=== PATIENT | female | born 1955 | race Caucasian/White ===

== ENCOUNTER 2019-06-01 23:34 | Inpatient (IN) | payer MEDICARE, BC ==
--- NOTE | 2019-06-01 23:44 | ED ---
Palpitations / Dysrhythmia - Allergy/Home Medications Allergies/Adverse Reactions: Allergies Allergy/AdvReac Type Severity Reaction Status Date / Time erythromycin base Allergy SEVERE Verified 04/10/19 11:26 DIZZINESS shellfish derived Allergy Anaphylatic Verified 04/10/19 11:26 Shock PMH/Surg Hx/FS Hx/Imm Hx Endocrine/Hematology History: Reports: Hx Anemia - SLIGHT Denies: Hx Diabetes, Hx Thyroid Disease Cardiovascular History: Denies: Hx Hypertension, Hx Pacemaker/ICD Respiratory History: Reports: Hx Sleep Apnea, Other Respiratory Problems/ Disorders - Bronchiectasis, MAC Denies: Hx Asthma, Hx Chronic Obstructive Pulmonary Disease (COPD) GI History: Reports: Hx Gastroesophageal Reflux Disease - PREVACID, Hx Irritable Bowel Denies: Hx Ulcer History: Reports: Hx Renal Disease - Microhematuria, Other Problems/ Disorders - MICROHEMATURIA Sensory History: Reports: Hx Contacts or Glasses - READING Denies: Hx Hearing Aid Opthamlomology History: Reports: Hx Contacts or Glasses - READING Neurological History: Reports: Hx Migraine - HISTORY OF- NONE RECENTLY, Other Neuro Impairments/Disorders - PAIN CLINIC PT Psychiatric History: Denies: Hx Panic Disorder - Cancer History Cancer Type, Location and Year: HX CHORIOCARCINOMA (1988) - TREATED WITH CHEMO Hx Chemotherapy: Yes - MOLAR Hx Radiation Therapy: No - Surgical History Surgery Procedure, Year, and Place: TONSILLECTOMY AND ADENOIDS. 4 D&C'S. OPEN CHOLESCYSTECTOMY. OVARIAN CYSTECTOMY WITH APPENDECTOMY. TVH- LAPAROSCOPIC- BILAT. S&O. LEFT MINI THORACOTOMY WITH EXICSION OF APICAL BLEBS AND PLEURODESIS. CLOSED REDUCTION OF NASAL FRACTURE. BILATERAL PLEPHAROPLASTY. CYSTO'S X 3 Hx Anesthesia Reactions: No Infectious Disease History: Denies: Hx Clostridium Difficile, Hx Hepatitis, Hx Human Immunodeficiency Virus (HIV), Hx of Known/Suspected MRSA, Hx Shingles, Hx Tuberculosis, Hx Known/ Suspected VRE, Hx Known/Suspected VRSA, History Other Infectious Disease - Family History Known Family History: Positive: Respiratory Disease Family History: No FHx of breast CA - Social History Alcohol Use: Occasionally Alcohol Amount: <1 Substance Use Type: Reports: None Hx Tobacco Use: No Smoking Status (MU): Former Smoker Type: Cigarettes Procedures - Sedation Patient Received Moderate/Deep Sedation with Procedure: No Diagnostics - Laboratory Lab Statement: Any lab studies that have been ordered have been reviewed, and results considered in the medical decision making process. - EKG 2338 Cardiac Rate: Tachycardia - 156 BPM EKG Rhythm: Atrial Fibrillation ST Segment: Other Summary of EKG Findings: A-FIB with rapid V-Rate at 156 BPM, ST depressions that are probably rate related, Nml P waves. No STEMI. Interpreted by Dr. Victor at 06/01/19, 2342. Course/Dx - Course Course Of Treatment: EKG at 2338 shows A-FIB with rapid V-Rate at 156 BPM, ST depressions that are probably rate related, Nml P waves. No STEMI Discharge ED - Discharge Plan Referrals: Franca Nix NP [Primary Care Provider] - - Attestation Statements Document Initiated by Scribe: Yes Documenting Scribe: Fabio Dewitt Provider For Whom Scribe is Documenting (Include Credential): Nikunj Victor MD Scribe Attestation: Fabio Corea, scribed for Nikunj Victor MD on 06/01/19 at 2344.
[2019-06-01] MEDS ORDERED: Diltiazem IV BAG* D5W Premix 125 MG/125 ML BAG IV SCH (23:45)
[2019-06-01] MEDS ORDERED: Diltiazem IV push/loading dose 5 MG/ML 5 ML vial (25 mg) IV SLOW PU ONE (23:52)
--- NOTE | 2019-06-01 23:57 | ED ---
Complex/Multi-Sys Presentation - HPI Summary HPI Summary: This pt is a 64 Y/O F presenting to [facility] with a CC of palpitations that are described as irregularly irregular and tachycardia. She states that her symptoms started on 05/30/19 with generalized illness including a fever, chills , malaise, arthralgia, and a headache. She states that on 05/31/19 she became nauseas and had episodes of vomiting along with the previous symptoms. She states that she only had one episode of emesis that alleviated her symptoms for the day. She states that tonight she began having pleuritic CP and AFIB with tachycardia. She states that the pain is rated an 8/10 in severity. She has no pertinent respiratory PMHx. - History Of Current Complaint Chief Complaint: EDChestPainROMI Time Seen by Provider: 06/01/19 23:41 Hx Obtained From: Patient Onset/Duration: Sudden Onset, Lasting Days - 2, Still Present, Worse Since - tonight, 2199 Timing: Constant Severity Currently: Severe - 8/10 Severity Initially: Mild Location: Pain At: - CP described as pleuritic Aggravating Factor(s): deep breaths Alleviating Factor(s): emesis Associated Signs And Symptoms: Positive: Headache, SOB, Chest Pain - pleuritic, Palpitations - irregullarly irregular, Nausea, Vomiting, Other - chills, myalgia , arthralgia - Allergies/Home Medications Allergies/Adverse Reactions: Allergies Allergy/AdvReac Type Severity Reaction Status Date / Time erythromycin base Allergy SEVERE Verified 06/01/19 23:44 DIZZINESS shellfish derived Allergy Anaphylatic Verified 06/01/19 23:44 Shock PMH/Surg Hx/FS Hx/Imm Hx Previously Healthy: Yes Endocrine/Hematology History: Reports: Hx Anemia - SLIGHT Denies: Hx Diabetes, Hx Thyroid Disease Cardiovascular History: Denies: Hx Hypertension, Hx Pacemaker/ICD Respiratory History: Reports: Hx Sleep Apnea, Other Respiratory Problems/ Disorders - Bronchiectasis, MAC Denies: Hx Asthma, Hx Chronic Obstructive Pulmonary Disease (COPD) GI History: Reports: Hx Gastroesophageal Reflux Disease - PREVACID, Hx Irritable Bowel Denies: Hx Ulcer History: Reports: Hx Renal Disease - Microhematuria, Other Problems/ Disorders - MICROHEMATURIA Sensory History: Reports: Hx Contacts or Glasses - READING Denies: Hx Hearing Aid Opthamlomology History: Reports: Hx Contacts or Glasses - READING Neurological History: Reports: Hx Migraine - HISTORY OF- NONE RECENTLY, Other Neuro Impairments/Disorders - PAIN CLINIC PT Psychiatric History: Denies: Hx Panic Disorder - Cancer History Cancer Type, Location and Year: HX CHORIOCARCINOMA (1988) - TREATED WITH CHEMO Hx Chemotherapy: Yes - MOLAR Hx Radiation Therapy: No - Surgical History Surgery Procedure, Year, and Place: TONSILLECTOMY AND ADENOIDS. 4 D&C'S. OPEN CHOLESCYSTECTOMY. OVARIAN CYSTECTOMY WITH APPENDECTOMY. TVH- LAPAROSCOPIC- BILAT. S&O. LEFT MINI THORACOTOMY WITH EXICSION OF APICAL BLEBS AND PLEURODESIS. CLOSED REDUCTION OF NASAL FRACTURE. BILATERAL PLEPHAROPLASTY. CYSTO'S X 3 Hx Anesthesia Reactions: No - Immunization History Immunizations Up to Date: Yes Infectious Disease History: No Infectious Disease History: Denies: Hx Clostridium Difficile, Hx Hepatitis, Hx Human Immunodeficiency Virus (HIV), Hx of Known/Suspected MRSA, Hx Shingles, Hx Tuberculosis, Hx Known/ Suspected VRE, Hx Known/Suspected VRSA, History Other Infectious Disease, Traveled Outside the [place] in Last 30 Days - Family History Known Family History: Positive: Respiratory Disease Family History: No FHx of breast CA - Social History Occupation: Employed Full-time Lives: With Family Alcohol Use: Occasionally Alcohol Amount: <1 Hx Substance Use: No Substance Use Type: Reports: None Hx Tobacco Use: Yes Smoking Status (MU): Former Smoker Type: Cigarettes Review of Systems Positive: Other - malaise . Negative: Chills Positive: Palpitations - fast and irregular , Chest Pain - pleuritic Positive: Vomiting, Nausea Positive: Arthralgia Positive: Headache All Other Systems Reviewed And Are Negative: Yes Physical Exam - Summary Physical Exam Summary: Appearance: Well-appearing, Well-nourished, lying in bed comfortably Skin: Warm, dry, no obvious rash Eyes: sclera anicteric, no conjunctival pallor ENT: mucous membranes moist, pharynx appears normal Neck: Supple, nontender Respiratory: Clear to auscultation, no signs of respiratory distress Cardiovascular: Very rapid and irregularly irregular pulse No murmurs. Normal distal pulses in tibial and radial bilaterally. Abdomen: Soft, nontender, normal active bowel sounds present Musculoskeletal: Normal, Strength/ROM Intact Neurological: A&Ox3, awake and alert, mentation is normal, speech is fluent and appropriate Psychiatric: affect is normal, does not appear anxious or depressed Triage Information Reviewed: Yes Vital Signs On Initial Exam: Initial Vitals Temp Pulse Resp BP Pulse Ox 97.5 F 134 20 102/50 97 06/01/19 23:35 06/01/19 23:35 06/01/19 23:35 06/01/19 23:35 06/01/19 23:35 Vital Signs Reviewed: Yes Procedures - Sedation Patient Received Moderate/Deep Sedation with Procedure: No Diagnostics - Vital Signs Vital Signs Temp Pulse Resp BP Pulse Ox 06/01/19 23:35 97.5 F 134 20 102/50 97 - Laboratory Result Diagrams: 06/02/19 00:04 06/02/19 00:04 Lab Statement: Any lab studies that have been ordered have been reviewed, and results considered in the medical decision making process. - Radiology CXR Radiology Interpretation Completed By: ED Physician Summary of Radiographic Findings: Infiltrate in the R lower lung hicks. Cone Shaped. Pending offical review. - CT Chest CT CT Interpretation Completed By: Radiologist Summary of CT Findings: 1. Right middle lobe consolidation which is increased since 04/12/2016 and october. reflect interval lobar pneumonia. 2. Interstitial prominence with minimal fibro-atelectatic change and. bronchiectasis which is similar. There are mild patchy bilateral pulmonary. infiltrates which are similar to slightly increased overall. ED physician has reviewed this result. - EKG 2338 Cardiac Rate: Tachycardia - 156 BPM EKG Rhythm: Atrial Fibrillation ST Segment: Other Summary of EKG Findings: A-FIB with rapid V-Rate at 156 BPM, ST depressions that are probably rate related, Nml P waves. No STEMI. Interpreted by Dr. Victor at 06/01/19, 2342. 0303 Cardiac Rate: NL - 97 BPM EKG Rhythm: Sinus Rhythm ST Segment: Normal Ectopy: None Summary of EKG Findings: NSR at 97 BPM, P waves, QRS complex, and T waves are within normal limits, T waves and intervals are normal, no ischemic changes. This is a normal EKG. Interpreted by Dr. Victor at 06/02/19 0306. Re-Evaluation - Re-Evaluation First Eval Re-Evaluation Time: 00:36 Change: Unchanged Comment: Pt's heart rate is still elevated after course of Cardizem, will be given a higher dose and a Chest CT will be ordered. Complex Multi-Symp Course/Dx Course Of Treatment: This pt is a 64 Y/O F [facility] [place] a CC of palpitations that are described as irregularly irregular and tachycardia. She states that her symptoms started on 05/30/19 with generalized illness including a fever, chills, malaise, arthralgia, and a headache. She states that on she became nauseas and had episodes of vomiting along with the previous symptoms. Tonight at 2300 she states that she had an onset of pleuritic chest pain and palpitations described as fast and irregular. Her PE found that she has a Very rapid and irregularly irregular pulse. Her EKG found A-FIB with rapid V-Rate at 156 BPM, ST depressions that are probably rate related, Nml P waves. No STEMI. She has abnormal lab values in WBC 16.9, INR 1.35, Troponin I .03. Re-eval at 0036 found that the pt's heart rate is still elevated after course of Cardizem, will be given a higher dose and a Chest CT will be ordered. She was given cardizem and diltiazem during her ED course. Her CXR shows Infiltrate in the R lower lung hicks. Cone shaped. Dr. Boyer, Hospitalist, was consulted at 0045 and agreed with the decision to order a Chest CT without contrast. He also stated that he wanted ABG values. Her ABG labratory results found abnormalities in O2 saturation of 100 and base excess of -2.5. Her chest CT shows the followin. Right middle lobe consolidation which is increased since 04/12/2016 and october. reflect interval lobar pneumonia. 2. Interstitial prominence with minimal fibro-atelectatic change and. bronchiectasis which is similar. There are mild patchy bilateral pulmonary. infiltrates which are similar to slightly increased overall. Her Dx is PNA. She will be admitted to [facility] for further care. EKG at 0303 shows NSR at 97 BPM, P waves, QRS complex, and T waves are within normal limits, T waves and intervals are normal, no ischemic changes. This is a normal EKG. - Diagnoses Differential Diagnoses/HQI/PQRI: Metabolic Abnormality, Sepsis, Other - pulmonary embolus, pulmonary infarct Provider Diagnoses: PNA (pneumonia) - Physician Notifications Discussed Care Of Patient With: Dante Boyer Time Discussed With Above Provider: 02:35 Instructed by Provider To: Admit As Inpatient - Critical Care Time Critical Care Time: 30-74 min - 35 minutes Discharge ED - Sign-Out/Discharge Documenting (check all that apply): Patient Departure - admitted - Discharge Plan Condition: Stable Disposition: ADMITTED TO [facility] - Billing Disposition and Condition Condition: STABLE Disposition: Admitted to [facility] - Attestation Statements Document Initiated by Gerardoe: Yes Documenting Scribe: Fabio Goldamn Provider For Whom Jesus is Documenting (Include Credential): Nikunj Victor MD Scribe Attestation: IFabio, scribed for Nikunj Victor MD on 06/02/19 at 0553. Scribe Documentation Reviewed: Yes Provider Attestation: The documentation as recorded by the Fabio collazo accurately reflects the service I personally performed and the decisions made by me, Nikunj Victor MD Status of Scribe Document: Viewed Consult Consult: Dr. Boyer, Hospitalist, was consulted at 0045 and agreed with the decision to order a Chest CT without contrast. He also stated that he wanted ABG values. Dr. Boyer, Hospitalist, was consulted for potential admission at 0235.
[2019-06-02 00:11] LABS: Hematocrit 37 % (35-47); Mean Corpuscular HGB Conc 35 g/dL (31-36); Mean Corpuscular Hemoglobin 35 pg (27-31); Mean Corpuscular Volume 98 fL (80-97); Mean Platelet Volume 7.2 fL (7.4-10.4); Platelet Count 280 10^3/uL (150-450); Red Blood Count 3.76 10^6 /uL (3.70-4.87); Red Cell Distribution Width 13 % (10-15); White Blood Count 16.9 10^3/uL (3.5-10.8)
[2019-06-02 00:17] LABS: INR 1.35 (0.82-1.09)
[2019-06-02 00:28] LABS: ALT 31 U/L (7-52); AST 19 U/L (13-39); Albumin 3.7 g/dL (3.2-5.2); Alkaline Phosphatase 148 U/L (34-104); Anion Gap 11 mmol/L (2-11); BUN/Creatinine Ratio 16.4 (8-20); Blood Urea Nitrogen 37 mg/dL (6-24); CO2 Carbon Dioxide 26 mmol/L (22-32); Calcium 10.3 mg/dL (8.6-10.3); Chloride 99 mmol/L (101-111); EGFR African American 26.3 (>60); EGFR Non-African American 21.7 (>60); Globulin 3.8 g/dL (2-4); Glucose 111 mg/dL (70-100); Magnesium 1.9 mg/dL (1.9-2.7); Potassium 3.3 mmol/L (3.5-5.0); Sodium 136 mmol/L (135-145); Total Protein 7.5 g/dL (6.4-8.9)
[2019-06-02 00:34] LABS: Troponin I 0.03 ng/mL (<0.03)
[2019-06-02] MEDS ORDERED: cefTRIAXone(*) 1 GM in NS 0.9% 50 ML* 50 ML IVPB ONE ×2 (00:36→01:24)
[2019-06-02] MEDS ORDERED: NS 0.9% 1000 ML** 1,000 ML IV ONE ×2 (00:40)
[2019-06-02 00:57] LABS: ABS Lymphocytes 1.3 10^3/ul (1.0-4.8); ABS Monocytes 0.4 10^3/ul (0-0.8); ABS Neutrophils 15.2 10^3/ul (1.5-7.7); Eosinophil % 0.2 %; Lymphocyte % 7.9 %
[2019-06-02 01:06] LABS: TSH (Thyroid Stimulating Horm) 3.77 mcIU/mL (0.34-5.60)
[2019-06-02] MEDS ORDERED: Diltiazem IV push/loading dose 5 MG/ML 5 ML vial (25 mg) IV SLOW PU ONE (01:11)
[2019-06-02 03:31] LABS: Troponin I 0.07 ng/mL (<0.03)
[2019-06-02] MEDS ORDERED: Levofloxacin 750 MG IVPREMIX(* 750 MG/150 ML BAG IVPB SCH (06:00)
[2019-06-02 06:51] LABS: ABS Lymphocytes 1.5 10^3/ul (1.0-4.8); ABS Monocytes 0.4 10^3/ul (0-0.8); ABS Neutrophils 14.2 10^3/ul (1.5-7.7); Eosinophil % 0.1 %; Hematocrit 33 % (35-47); Hemoglobin 11.4 g/dL (12.0-16.0); Lymphocyte % 9.1 %; Mean Corpuscular HGB Conc 35 g/dL (31-36); Mean Corpuscular Hemoglobin 34 pg (27-31); Mean Corpuscular Volume 97 fL (80-97); Mean Platelet Volume 7.5 fL (7.4-10.4); Platelet Count 275 10^3/uL (150-450); Red Blood Count 3.38 10^6 /uL (3.70-4.87); Red Cell Distribution Width 13 % (10-15); White Blood Count 16.1 10^3/uL (3.5-10.8)
[2019-06-02 06:55] LABS: Influenza A Molecular NEGATIVE (Negative); Influenza B Molecular NEGATIVE (Negative)
[2019-06-02 06:58] LABS: BUN/Creatinine Ratio 16.6 (8-20); Calcium 9.3 mg/dL (8.6-10.3); EGFR African American 36.7 (>60); EGFR Non-African American 30.4 (>60); Potassium 3.6 mmol/L (3.5-5.0)
[2019-06-02] MEDS: NS 0.9% 1000 ML** 1,000 ML IV SCH ×2 (07:18→19:00)
[2019-06-02 07:20] LABS: Troponin I 0.07 ng/mL (<0.03)
[2019-06-02] MEDS ORDERED: Acetaminophen TAB* 325 MG PO PRN (07:22)
--- NOTE | 2019-06-02 08:35 | HP ---
CC: Franca Nix NP* ADMISSION HISTORY AND PHYSICAL: DATE OF ADMISSION: 06/02/19 CHIEF COMPLAINT: Right-sided chest pain and palpitation. HISTORY OF PRESENT ILLNESS: This is a 64-year-old female with past medical history of bronchiectasis, sleep apnea, on BiPAP nightly, came into the ER complaining of palpitations. The patient stated that she was in her usual state of health up until when she started developing right-sided chest pain, she does have a history of pleuritic chest pain and she did not think much of it and her pleuritic chest pain has gotten worse and she was having some accompanying chills and generalized malaise, arthralgia, and headache and some cough. Since , her pain has gotten worse and last night she had very severe chest pain accompanied by dizziness and palpitations. 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 She did have an episode of nausea and vomited 1 time, but denies any other urinary problems or any neurological problems other than the dizziness, which she previously mentioned. She does state that she has periodic constipation. PAST MEDICAL HISTORY: As mentioned bronchiectasis, sleep apnea. She also has chronic kidney disease, stage 3, and lumbar radiculopathy for which she gets intermittent steroid injections in the epidural space, last one was 04/24/19. The patient does follow up with veterinary poultry inspector, who is a bronchiectasis specialist at [facility]. PAST SURGICAL HISTORY: She has had total vagina hysterectomy and bilateral salpingo-oophorectomy, bilateral blepharoplasties, left thoracotomy due to multiple pneumothoraces, cholecystectomy, ovarian cystectomy, D and C x3, tonsil and adenoidectomy, irritable bowel syndrome, left index finger mass removal, broken nose, status post surgical repair, pleurodesis on the left side for multiple pneumothoraces. HOME MEDICATIONS: The patient is currently on: 1. Tramadol 50 mg p.o. b.i.d. 2. Radha's wort 300 mg p.o. b.i.d. 3. Sodium chloride 3% by inhalation b.i.d. 4. Simethicone 80 mg p.o. q.4 hours p.r.n. 5. Probiotic 1 tablet oral daily. 6. Multivitamin 1 tablet every morning. 7. Skelaxin 800 mg p.o. at bedtime. 8. Fiber Select Gummies 2 tablets chewable daily. 9. Barbara 150 mg oral daily. 10. Pepcid 20 mg p.o. b.i.d. 11. Estradiol 0.5 mg oral daily. 12. Echinacea 350 mg oral daily. 13. ProAir HFA 2 puffs by inhalation q.6 hours p.r.n. 14. Ventolin 2.5 mg by inhalation b.i.d. 15. Acetaminophen for pain 2 tablets q.6 hours p.r.n. ALLERGIES: The patient is allergic to ERYTHROMYCIN BASE and shellfish. FAMILY HISTORY: Father in his 80s, but was diagnosed with an IA at age 71 , also had a history of AFib. Grandmother had stroke. Two sisters had thyroid cancer. Mother at age 85 with AFib, pacemaker, and liver failure given she was an alcoholic. SOCIAL HISTORY: She used to work as a nurse, currently retired. Quit smoking in 1979, prior to that only had a few years of smoking, intermittently occasional alcohol use, no drugs. Lives with her and son and she is otherwise full code. REVIEW OF SYSTEMS: A 14-point review of systems did not reveal any new information other than what is mentioned in the HPI. PHYSICAL EXAMINATION GENERAL: The patient is awake, alert, and oriented x3, did not appear to be in any acute respiratory distress. VITAL SIGNS: In the ER, temperature was recorded at 97.5, BP was noted to be 102/50, heart rate was noted to be 197 to 150 initially, but post Cardizem drip it improved to 93, respiration rate 25, saturating 96% on 2 L nasal cannula. HEAD AND NECK: Atraumatic, normocephalic. Bilateral pupils were reactive. Oral mucosa was moist. Neck supple. No jugular venous distention. LUNGS: The patient's posterior aspect of the lungs were completely clear to auscultation, but on the right anterior aspect there were some rhonchi appreciated. HEART: S1, S2. Regular rate and rhythm. ABDOMEN: Soft, nontender, nondistended. EXTREMITIES: No cyanosis, clubbing, or edema. DIAGNOSTIC STUDIES/LAB DATA: CBC shows elevated white count of 16.9, hemoglobin, hematocrit stable, platelet count is stable. Coagulation profile shows INR of 1.35. ABG was unremarkable. Comprehensive metabolic panel shows potassium of 3.3, magnesium 1.9, a set of troponin 0.03, and later was 0.07, LFTs within normal limits. BUN elevated at 37, creatinine 2.26 compared to her baseline, there is a significant elevation in creatinine. EKG: Initial EKG was showing AFib with rapid ventricular rate of [address] segment depression in the inferolateral leads likely demand ischemia from her rate, these had resolved by the second EKG, which showed sinus rhythm at [address] scan of the chest was read as right middle lobe consolidation, which is increased since 04/24/16 may reflect interval lobar pneumonia, interstitial prominence with minimal fibroatelectatic changes and bronchiectasis, which is similar. There is a mild patchy bilateral pulmonary infiltrates, which are similar to slightly increased overall. IMPRESSION: This is a 64-year-old female with history of bronchiectasis, sleep apnea, chronic kidney disease, stage 3, here due to worsening renal failure, new - onset atrial fibrillation, and right middle lobe pneumonia. ASSESSMENT: 1. Sepsis secondary to right middle lobe pneumonia. We will follow up sputum cultures and we will start the patient on Levaquin. 2. New-onset atrial fibrillation likely secondary to pneumonia. Her heart rate is back to sinus rhythm. We will monitor the patient on telemetry, get an echocardiogram. The patient otherwise does not have any cardiac risk factors, CHADS score so far has been 0, but we will follow up echocardiogram to rule out any congestive changes and in the meantime, we will start the patient on daily aspirin for stroke prevention. 3. History of bronchiectasis, follows with [facility]. 4. History of obstructive sleep apnea, on BiPAP at home, we will restart the home BiPAP. 5. Acute on chronic kidney disease likely secondary to sepsis. We will start the patient on gentle hydration. 6. DVT prophylaxis with sequential compression device. [id number]/[facility] #: [id number] [facility]
[2019-06-02] MEDS ORDERED: Pneumococcal *Vac Polyvalent 0.5 ML VIAL IM ONE (09:00)
[2019-06-02] MEDS ORDERED: Famotidine TAB* 20 MG PO SCH (09:00)
[2019-06-02 09:37] LABS: Troponin I 0.07 ng/mL (<0.03)
[2019-06-02] MEDS: Famotidine TAB* 20 MG PO SCH (09:46)
[2019-06-02] MEDS: Aspirin 81 mg CHEW TAB* 81 MG TAB.CHEW PO SCH (09:47)
[2019-06-02] MEDS: Diltiazem TAB* 30 MG PO SCH ×3 (12:37→22:01)
[2019-06-02 13:28] LABS: Troponin I 0.06 ng/mL (<0.03)
[2019-06-02 15:53] LABS: Troponin I 0.05 ng/mL (<0.03)
[2019-06-02] MEDS: traMADol TAB* 50 MG PO PRN (18:09)
--- NOTE | 2019-06-02 19:23 | PN ---
Subjective Date of Service: 06/02/19 Interval History: Seen sitting up at the side of the bed, visiting with her family. Reporting sharp right mid-upper back pain and right anterior chest wall pain that is worse with inspiration. Denies shortness of breath, palpitations, abdominal pain , nausea, vomiting, issues moving her bowels of bladder. Is in sinus rhythm, according to telemetry. Family History: Unchanged from Admission Social History: Unchanged from Admission Past Medical History: Unchanged from Admission Objective Active Medications: Acetaminophen (Tylenol Tab*) 650 mg PO Q6H PRN PRN Reason: PAIN OR FEVER > 100.4F Last Admin: 06/02/19 07:33 Dose: 650 mg Aspirin (Aspirin 81 Mg Chew Tab*) 162 mg PO DAILY [facility] Last Admin: 06/02/19 09:47 Dose: 162 mg Diltiazem HCl (Cardizem Tab*) 30 mg PO Q8HR LEENA Last Admin: 06/02/19 15:06 Dose: 30 mg Famotidine (Pepcid Tab*) 20 mg PO DAILY [facility] Last Admin: 06/02/19 09:46 Dose: 20 mg Sodium Chloride (Ns 0.9% 1000 Ml) 1,000 mls @ 100 mls/hr IV PER RATE [facility] Last Admin: 06/02/19 19:00 Dose: 100 mls/hr Levofloxacin/Dextrose (Levaquin 750 Mg Ivpremix(*)) 750 mg in 150 mls @ 100 mls /hr IVPB Q48H [facility]; Protocol Tramadol HCl (Ultram*) 50 mg PO Q6H PRN PRN Reason: PAIN - MODERATE Last Admin: 06/02/19 18:09 Dose: 50 mg Vital Signs - 8 hr 06/02/19 06/02/19 06/02/19 11:58 15:19 18:09 Temperature 97.6 F 98.0 F Pulse Rate 84 77 Respiratory 16 18 17 Rate Blood Pressure 98/51 92/54 (mmHg) O2 Sat by Pulse 94 96 Oximetry Oxygen Devices in Use Now: None Appearance: Well developed woman in no acute distress. Eyes: No Scleral Icterus, PERRLA Ears/Nose/Mouth/Throat: NL Teeth, Lips, Gums, Clear Oropharnyx, Mucous Membranes Moist Neck: NL Appearance and Movements; NL JVP, Trachea Midline Respiratory: Symmetrical Chest Expansion and Respiratory Effort, - - Expiratory rhonchi to right lower and middle lung hicks. Cardiovascular: NL Sounds; No Murmurs; No JVD, RRR, No Edema Abdominal: NL Sounds; No Tenderness; No Distention Lymphatic: No Cervical Adenopathy Extremities: No Edema, No Clubbing, Cyanosis Skin: No Rash or Ulcers, No Nodules or Sclerosis Neurological: Alert and Oriented x 3 Lines/Tubes/Other Access: Clean, Dry and Intact Peripheral IV Result Diagrams: 06/02/19 06:27 06/02/19 06:27 Microbiology and Other Data: Microbiology 06/02/19 09:08 Gram Stain - Final Sputum Assess/Plan/Problems-Billing Assessment: This is a 64 year old female with a past medical history of bronchiectasis, GERD , and CKD who was admitted on 06/02/19 for right middle lobe pneumonia and new onset afib, likely due to pneumonia. - Patient Problems (1) Right middle lobe pneumonia Current Visit: Yes Status: Acute Code(s): J18.9 - PNEUMONIA, UNSPECIFIED ORGANISM SNOMED Code(s): 766686809 Comment: -Able to maintain sat on room air. Reports coughing, shortness of breath with exertion, chest pain with inspiration. -Unable to use azithomycin due to e-mycin allergy, concern fo renal toxicity with ceftriaxone. -Started on levaquin Q48H instead of Q24H due to renal impairment. However, patient revealed that last time she was given levaquin, it caused the tendons in her ankles to ache. She stated that her casual shoe inspector in [facility] typically gives her augmentin for pneumonia, which is likely what she will be discharged with when the time comes. (2) Atrial fibrillation with RVR Current Visit: Yes Status: Acute Code(s): I48.91 - UNSPECIFIED ATRIAL FIBRILLATION SNOMED Code(s): 939553908697342 Comment: -New onset upon this admission, likely triggered by her pneumonia. Initially was RVR, had been on dilitiazem drip. Now on diltiazem 30mg Q8H. Will convert to ER once we see what dosage controls her heart rate. HR was in the 90' s this AM. -Chadsvasc score of 2, only scoring because of age and gender. Has-bled score of 0. Currently on 162 ASA, though will obtain input from cardiology about the necessity for care home AC or not. (3) GERD (gastroesophageal reflux disease) Current Visit: Yes Status: Acute Code(s): K21.9 - GASTRO-ESOPHAGEAL REFLUX DISEASE WITHOUT ESOPHAGITIS SNOMED Code(s): 722866170 Comment: -Patient stated that she normally takes famotidine 20mg PO BID at home. However, due to her creatinine clearance of less than 30, she can only safely take it once a day for now. (4) Bronchiectasis Current Visit: Yes Status: Acute Code(s): J47.9 - BRONCHIECTASIS, UNCOMPLICATED SNOMED Code(s): 19031492 Comment: -[place] that her GERd may likely be a contributing factor. Is followed by Dr. Flex [facility] at [facility] ([phone]) (5) SIMON (obstructive sleep apnea) Current Visit: Yes Status: Acute Code(s): G47.33 - OBSTRUCTIVE SLEEP APNEA ( ADULT) (PEDIATRIC) SNOMED Code(s): 71464256 Comment: -Uses a bipap at home which we she may continue to use here. (6) Acute kidney injury superimposed on chronic kidney disease Current Visit: Yes Status: Acute Code(s): N17.9 - ACUTE KIDNEY FAILURE, UNSPECIFIED; N18.9 - CHRONIC KIDNEY DISEASE, UNSPECIFIED SNOMED Code(s): 71203082 Comment: -Creatinine has significantly improved from admitting creatinine level. Continue IV hydration, recheck BMP in AM. (7) DVT prophylaxis Current Visit: Yes Status: Acute Code(s): Z29.9 - ENCOUNTER FOR PROPHYLACTIC MEASURES, UNSPECIFIED SNOMED Code(s): 707983948 Comment: -On ASA. Continue SCD's. (8) Full code status Current Visit: Yes Status: Acute Code(s): Z78.9 - OTHER SPECIFIED HEALTH STATUS SNOMED Code(s): 463579582
[2019-06-03] MEDS: NS 0.9% 1000 ML** 1,000 ML IV SCH (05:27)
[2019-06-03] MEDS: traMADol TAB* 50 MG PO PRN (05:27)
[2019-06-03] MEDS: Diltiazem TAB* 30 MG PO SCH (05:27)
[2019-06-03 06:30] LABS: ABS Eosinophils 0.1 10^3/ul (0-0.6); ABS Lymphocytes 1.8 10^3/ul (1.0-4.8); ABS Monocytes 0.8 10^3/ul (0-0.8); ABS Neutrophils 9.1 10^3/ul (1.5-7.7); Eosinophil % 0.6 %; Hematocrit 28 % (35-47); Lymphocyte % 15.3 %; Mean Corpuscular HGB Conc 35 g/dL (31-36); Mean Corpuscular Hemoglobin 34 pg (27-31); Mean Corpuscular Volume 97 fL (80-97); Mean Platelet Volume 7.2 fL (7.4-10.4); Platelet Count 256 10^3/uL (150-450); Red Blood Count 2.92 10^6 /uL (3.70-4.87); Red Cell Distribution Width 14 % (10-15); White Blood Count 11.7 10^3/uL (3.5-10.8)
[2019-06-03 06:36] LABS: BUN/Creatinine Ratio 15.1 (8-20); Calcium 8.6 mg/dL (8.6-10.3); Potassium 3.4 mmol/L (3.5-5.0)
[2019-06-03 07:11] LABS: Magnesium 1.7 mg/dL (1.9-2.7)
[2019-06-03] MEDS: Famotidine TAB* 20 MG PO SCH (07:42)
[2019-06-03] MEDS: Aspirin 81 mg CHEW TAB* 81 MG TAB.CHEW PO SCH (07:42)
[2019-06-03 07:44] VITALS: BP 117/55
[2019-06-03] MEDS ORDERED: Potassium Chlor TAB* 20 MEQ TAB.ER PO ONE (08:12)
[2019-06-03] MEDS ORDERED: Magnesium Sulfate 2 GM IV* 2 GM/50 ML BAG IVPB ONE (08:12)
[2019-06-03] MEDS ORDERED: Amoxicillin/Clavulanate TAB* 500 MG PO SCH (09:00)
--- NOTE | 2019-06-03 13:53 | ECHO ---
*[facility]* [place] [address] Fax #: [phone] Transthoracic Echocardiogram Patient: Tuyet Sheldon : 1955 Study Date: 06/03/2019 Age: 64 Gender: F HR: 80 bpm Height: 63 in /160 cm BSA: 1.61 m^2 Weight: 127.7 lb /58.1 kg BMI: 22.7 kg/m^2 *Seasonal Driver: * Latha Oliveira [facility] *Referring Physician: * Dante Boyer *Reading Physician: * Gerard Keller MD Indications: Abnormal EKG. History: Risk factors: Former tobacco use. Conclusions Summary: - Left ventricle: The cavity size is normal. Wall thickness is normal. Systolic function is normal. The estimated ejection fraction is 60-65%. Wall motion is normal; there are no regional wall motion abnormalities. - Right ventricle: The cavity size is mildly dilated. Systolic function is normal. Systolic pressure is mildly increased. - Left atrium: The atrium is mildly dilated. - Mitral valve: There is mild to moderate regurgitation. - Tricuspid valve: There is mild regurgitation. - Pulmonary arteries: Systolic pressure is mildly increased. Recommendations: None prior for comparison at time of interpretation Study data: Transthoracic echocardiogram. Procedure: Transthoracic echocardiography was performed. Image quality was fair. Complete 2D, spectral Doppler, and color flow Doppler. Location: Bedside. Patient status: Inpatient. Patient room number: 451. Rhythm: Normal sinus rhythm. Findings Left ventricle: The cavity size is normal. Wall thickness is normal. Systolic function is normal. The estimated ejection fraction is 60-65%. Wall motion is normal; there are no regional wall motion abnormalities. Left ventricular diastolic function parameters are normal. Right ventricle: The cavity size is mildly dilated. Systolic function is normal. Systolic pressure is mildly increased. Left atrium: The atrium is mildly dilated. Right atrium: The atrium is mildly dilated. Mitral valve: The leaflets are mildly thickened. There is no evidence of stenosis. There is mild to moderate regurgitation. Aortic valve: The valve is trileaflet. The leaflets are mildly thickened. There is no evidence of stenosis. There is trace to mild regurgitation. Tricuspid valve: The leaflets are normal thickness. There is no evidence of stenosis. There is mild regurgitation. Pulmonic valve: Poorly visualized. The leaflets are normal thickness. There is no evidence of stenosis. There is trace regurgitation. Aorta: Aortic root: The aortic root is appears normal. Ascending aorta: The ascending aorta is appears normal. Aortic arch: The aortic arch is appears normal. Pericardium: A prominent pericardial fat pad is present. There is no significant pericardial effusion. Pulmonary arteries: The main pulmonary artery is normal-sized. Systolic pressure is mildly increased. Systemic veins: Inferior vena cava: The vessel is dilated. There is (>= 50%) respiratory change in the IVC dimension. Measurements Left ventricle Value Ref Aortic valve Value Ref ALBERTO, LAX 4.3 cm 3.8 - Tatiana diam, S 1.9 cm 1.9 - 2.7 5.2 Tatiana diam/bsa, S 1.2 cm/m^2 1.1 - 1.5 ESD, LAX 2.6 cm 2.2 - Peak v, S 1.31 m/sec --------- 3.5 VTI, S 24.3 cm --------- FS, LAX 40 % 27 - 45 Mean grad, S 2.8 mm Hg --------- PW, ED, LAX 0.9 cm 0.6 - Peak grad, S 6.9 mm Hg --------- 0.9 LVOT/AV, VTI ratio 0.8 --------- FS 40 % 27 - 45 PW, ED 0.9 cm 0.6 - Mitral valve Value Ref 0.9 Peak E 0.85 m/sec --------- E', lat tatiana, TDI 10.0 cm/sec >=10.0 Peak A 0.56 m/sec -- ------- E/e', lat tatiana, TDI 8 -------- Decel time 236 ms ----- ---- E', med tatiana, TDI (L) 6.0 cm/sec >=7.0 Peak grad, D 2.9 mm Hg -- ------- E/e', med tatiana, TDI 14 -------- Peak E/A ratio 1.5 ----- ---- E', avg, TDI 8.0 cm/sec -------- MR peak v 5.27 m/sec ----- ---- E/e', avg, TDI 11 <=14 Peak LV-LA grad S 107 mm Hg -- ------- MR alias velocity 0.32 m/sec --------- LVOT Value Ref MR PISA radius 0.4 cm --------- Peak priscila, S 0.99 m/sec -------- Max MR v 5.18 m/sec --------- VTI, S 19.6 cm -------- Regurg VTI 169.7 cm --------- Peak grad, S 4 mm Hg -------- ERO, PISA 0.06 cm^2 --------- Mean grad, S 2 mm Hg -------- Tricuspid valve Value Ref Ventricular septum Value Ref TR peak v (H) 2.9 m/sec <=2.8 IVS, ED 0.9 cm 0.6 - Peak RV-RA grad, S 34 mm Hg --------- 0.9 Aortic root Value Ref Right ventricle Value Ref Root diam 3.2 cm <3.9 ALBERTO, LAX 3.3 cm -------- ALBERTO minor ax, A4C (H) 4.0 cm 1.9 - Ascending aorta Value Ref mid 3.5 AAo AP diam, S 3.3 cm --------- Pressure, S 42 mm Hg -------- Aortic arch Value Ref Left atrium Value Ref Arch diam 2.4 cm --------- LA ID 4.0 cm -------- SI dim ES, LAX 4.0 cm -------- Pulmonary artery Value Ref ML dim, A4C 4.4 cm -------- Pressure, S 42.0 mm Hg --------- SI dim, A4C 4.5 cm -------- Vol, ES, 2-p 59 ml -------- Inferior vena cava Value Ref Vol/bsa, ES, 2-p (H) 37 ml/m^2 16 - 34 Diam 2.3 cm --------- Right atrium Value Ref SI dim, ES 4.4 cm 3.4 - 5.3 ML dim, ES, A4C (H) 5.1 cm 2.6 - 4.4 Estimated RAP 8 mm Hg -------- Legend: (L) and (H) galileo values outside specified reference range. Prepared and electronically signed by Gerard Keller MD 06/03/2019 13:52
--- NOTE | 2019-06-04 04:18 | DS ---
DISCHARGE SUMMARY: DATE OF ADMISSION: 06/01/19 DATE OF DISCHARGE: 06/03/19 PROVIDER: Corry Schneider NP. ATTENDING PHYSICIAN: Dr. Boyer* (dictated by Corry Schneider NP). PRIMARY CARE PHYSICIAN: Franca Nix NP. PRIMARY DIAGNOSES: 1. Right middle lobe pneumonia and atrial fibrillation with rapid ventricular response. 2. Acute on chronic kidney disease or kidney injury. SECONDARY DIAGNOSES: 1. Bronchiectasis. 2. Gastroesophageal reflux disease. 3. Obstructive sleep apnea. PROCEDURES: None. STUDIES: Chest x-ray, which showed findings were most consistent with right lower lobe pneumonia, possibly with hypoventilatory change/atelectasis of the left lower lobe. Chest CT without contrast showed right middle lobe consolidation, which is increased since 04/12/16 and may reflect interval lobular pneumonia, interstitial prominence with minimal fibro-atelectatic change and bronchiectasis, which is similar. There are mild patchy bilateral pulmonary infiltrates, which are similar too, slightly increased overall. Echocardiogram showed an ejection fraction of 60% to 65%, right ventricle mildly dilated, bilateral atria mildly dilated. Mitral valve showed mildly thickened leaflets with mild to moderate regurgitation. Aortic valve is trileaflet and leaflets are mildly thickened, no evidence of stenosis, there is trace to mild regurgitation. Tricuspid valve shows mild regurgitation. Pulmonic valve was poorly visualized and showed trace regurgitation. PERTINENT LABORATORY DATA: White blood cell count is 11.7, RBC 2.92, hemoglobin 10, hematocrit of 28, MCH of 34, MPV 7.2. Potassium 3.4, creatinine 1.06, magnesium 1.7. Troponin is 0.05. Triglycerides are 115, cholesterol 131 , LDL cholesterol 71, HDL cholesterol of 37. Influenza A and B were negative. HISTORY OF PRESENT ILLNESS/HOSPITAL COURSE: This is a 64-year-old female with past medical history significant for bronchiectasis and sleep apnea as well as GERD, who came to the ER on 06/01/19 with reports of right-sided chest pain starting on the past with accompanying chills and general malaise, arthralgia, headache, and nonproductive cough. In the ER, they performed an EKG , chest x-ray, labs, and chest CT, which revealed that she had right middle lobe pneumonia and AFib with RVR, likely provoked by her pneumonia. She received diltiazem drip in the emergency room, which caused her heart rate to decrease from 135 down into the 80s where it has for the most part stayed for the duration of her admission. Initially, she had received two 1-liter boluses of normal saline and ceftriaxone; however, due to her erythromycin allergy and her impaired renal function, we opted to treat with Levaquin instead. The next day, she was feeling a little bit better. White blood cell count came down slightly, though she was still reporting sharp mid upper back pain and right anterior chest wall pain that was worse with inspiration. However, the patient had converted into sinus rhythm the previous day in the emergency room and has remained in sinus rhythm. Pain is well controlled with tramadol, which is what she normally takes at home. Today, she was feeling even better. White blood cell count came down even more; however, her potassium and magnesium levels were slightly low. She had not been having any diarrhea or vomiting, though she stated her oral intake has not been great as is normal for her when she takes pneumonia, which happens to her about once a year. Electrolytes were repleted with IV magnesium and p.o. potassium. The patient was not having any shortness of breath, stated that she felt much better. Chest pain had improved , though still present, again worse with inspiration and the patient looks anxious to go home today. REVIEW OF SYSTEMS: An 11-point system review was performed, which was positive for right mid upper back and right anterior chest wall pain with inspiration. Denied any feeling feverish, chills, chest pain, palpitations, shortness of breath, abdominal pain, nausea, vomiting, or issues moving her bowel or bladder. PHYSICAL EXAMINATION: Vital Signs: Temperature 98.7, pulse 83, respirations 18 , oxygen 93% on room air, blood pressure 117/55. General: This is a well- developed woman seen standing up in her room and ambulating without difficulty. Cardiac: S1, S2 present. Heart rate regular. No murmurs, gallops, or rubs appreciated. Respiratory: Lung sounds are clear throughout bilaterally on room air. Abdomen: Soft, nontender, and nondistended with positive bowel sounds. Musculoskeletal: No clubbing or cyanosis of the digits. Able to move all extremities. Neurological: No focal deficits appreciated. Sensation intact to light touch. Skin is intact without any rashes or lesions. Psych: Alert and oriented x3, thought content organized. DISCHARGE PLAN: To continue regular diet at home. Activity: As tolerated. However, she did mention having some bilateral ankle discomfort, which she only just mentioned it had happened the last time she took Levaquin, so suggest that the patient avoid any strenuous exercise until pain resolved and encouraged that she include Levaquin on her drug allergies. PLAN FOR EACH CONDITION: 1. Right middle lobe pneumonia. To go home on 4 days' worth of Augmentin p.o. Does not require any inhaler or Mucinex as she is not having any difficulty with coughing. She is to stay hydrated and follow up with her primary care as needed. 2. AFib with RVR. This resolved entirely in the emergency room with no other episodes throughout her stay. I feel that this was provoked by her pneumonia. I spoke with Dr. Keller, who stated that because this is the first time this has happened and it was provoked, he did not feel that it was necessary for her to go home with diltiazem or an anticoagulant. CHADS-VASc score was 2 and purely scoring because of her age and gender, HAS-BLED score was 0. 2. Bronchiectasis. It is felt that this is likely exacerbated by her GERD. She is to continue following with her physician in [facility]. 3. GERD. She may continue with her famotidine 20 mg b.i.d. as her creatinine clearance has improved. 4. Obstructive sleep apnea. She can continue using her CPAP at home. 5. Chronic kidney disease. Discharge creatinine was 1.06. She should continue to follow up with her primary care as she typically does and to stay away from nephrotoxic medications. MEDICATIONS: To continue at home: 1. Tramadol 50 mg p.o. b.i.d. 2. [place]'s wort 300 mg p.o. b.i.d. 3. Sodium chloride 3% inhalation b.i.d. 4. Simethicone 80 mg p.o. q.4 hours p.r.n. 5. Probiotic 1 tablet p.o. daily. 6. Multivitamin 1 tablet p.o. q.a.m. 7. Metaxalone 800 mg p.o. at bedtime. 8. Fiber Select Gummies 2 chewable gummies p.o. daily. 9. Fexofenadine 180 mg p.o. daily. 10. Famotidine 20 mg p.o. b.i.d. 11. Estradiol 0.5 mg p.o. daily. 12. Echinacea 350 mg p.o. daily. 13. Albuterol inhaler 2 puffs inhalation q.6 hours p.r.n. 14. Albuterol nebulizer 2.5 mg inhalation b.i.d. 15. Amoxicillin/clavulanic acid 500 mg p.o. b.i.d. 16. Acetaminophen 650 mg p.o. q.6 hours p.r.n. CONDITION UPON DISCHARGE: Stable. DISPOSITION: Home. TIME SPENT: Time spent on the patient is about an hour with half of that spent [id number]. Corry Schneider, NIC [id number]/[facility] #: [id number]
[2019-06-04] MEDS ORDERED: Levofloxacin 750 MG IVPREMIX(* 750 MG/150 ML BAG IVPB SCH (08:00)
== END 2019-06-03 11:30 | disposition home or self-care (01) | DRG 871 ==
LOC: ED 23:34 → MEDTELE 06-02 04:06
PROVIDERS: ADMIT Internal Medicine; ATTEND Internal Medicine
DX: A41.9 Sepsis, unspecified organism (principal); J18.9 Pneumonia, unspecified organism; J47.0 Bronchiectasis with acute lower respiratory infection; N17.9 Acute kidney failure, unspecified; K21.9 Gastro-esophageal reflux disease without esophagitis; N18.3 Chronic kidney disease, stage 3 (moderate); I48.91 Unspecified atrial fibrillation; G47.33 Obstructive sleep apnea (adult) (pediatric); K58.1 Irritable bowel syndrome with constipation; M54.16 Radiculopathy, lumbar region; G43.909 Migraine, unspecified, not intractable, without status migrainosus; Z87.891 Personal history of nicotine dependence; Z88.1 Allergy status to other antibiotic agents; Z91.013 Allergy to seafood; Z85.89 Personal history of malignant neoplasm of other organs and systems; Z92.21 Personal history of antineoplastic chemotherapy; Z90.722 Acquired absence of ovaries, bilateral; Z90.710 Acquired absence of both cervix and uterus
CPT/HCPCS: 36415; 71045; 71250; 80048; 80053; 80061; 82803; 83605; 83735; 84443; 84484; 85025; 85610; 87040; 87070; 87205; 87899; 90732; 93005; 93306; 99285; A9270-GY; J0696; J3475; J3490

== ENCOUNTER 2023-02-16 19:34 | Observation (INO) ==
[2023-02-16] MEDS ORDERED: Lactated Ringers 1000 ml BAG 500 ML IV ONE (19:52)
[2023-02-16 19:59] LABS: ABS Basophils 0.1 10^3/uL (0.0-0.1); ABS Eosinophils 0.2 10^3/uL (0.0-0.5); ABS Lymphocytes 3.4 10^3/uL (1.0-4.8); ABS Monocytes 0.7 10^3/uL (0.0-0.9); ABS Neutrophils 4.8 10^3/uL (1.5-7.6); Eosinophil % 2.5 %; Hematocrit 40.1 % (35-45); Hemoglobin 13.9 g/dL (11.5-14.3); Lymphocyte % 37.3 %; Mean Corpuscular Hemoglobin 33.9 pg (27-33); Mean Corpuscular Hgb Conc 34.8 g/dL (31-36); Mean Corpuscular Volume 97.4 fL (80-97); Mean Platelet Volume 6.9 fL (7.5-11.2); Platelet Count 321 10^3/uL (150-450); Red Blood Count 4.12 10^6/uL (3.63-4.92); Red Cell Distribution Width 12.8 % (12-17); White Blood Count 9.2 10^3/uL (3.8-11.8)
[2023-02-16 20:15] LABS: Activated Partial Thrombo Time 35.2 seconds (26.0-38.0); Albumin 5.1 g/dL (3.2-5.2); Calcium 10.1 mg/dL (8.6-10.3); INR 0.95 (0.83-1.13); Magnesium 2.1 mg/dL (1.9-2.7); Total Bilirubin 0.4 mg/dL (0.2-1.0)
[2023-02-16 20:21] LABS: Albumin/Globulin Ratio 1.3 (1-3); Creatinine, Serum 1.04 mg/dL (0.51-0.95); Globulin 3.8 g/dL (2-4); Total Protein 8.9 g/dL (6.4-8.9); eGFR CKD-EPI 58.5 (>60)
[2023-02-16 20:23] LABS: Potassium 2.9 mmol/L (3.5-5.0)
[2023-02-16] MEDS ORDERED: Iodixanol (CONTRAST) 320 MG/ML 100 ML SDV IV ONE (20:50)
[2023-02-16 21:53] LABS: High Sensitivity Troponin 1 Hr 12 pg/mL (<15)
[2023-02-16 22:10] LABS: TSH Ultra Thyroid Stim Horm 3.56 mcIU/mL (0.34-5.60)
[2023-02-16] MEDS ORDERED: Potassium Chlor 20 meq TAB.ER PO ONE (23:52)
[2023-02-17] MEDS: KCL 10 MEQ/50 ML IVPREMIX 10 MEQ/50 ML BAG IV SCH ×3 (00:06→02:04)
[2023-02-17] MEDS ORDERED: KCL 20 MEQ/100 ML IVPREMIX 20 MEQ/100 ML BAG IV SCH (03:00)
[2023-02-17] MEDS ORDERED: Potassium Chloride LIQUID 20 MEQ/15 ML LIQUID PO ONE (03:20)
[2023-02-17] MEDS ORDERED: Potassium Chlor 20 meq TAB.ER PO ONE (03:36)
[2023-02-17] MEDS ORDERED: Albuterol HFA INHALER 8 gm MDI INH PRN (04:43)
[2023-02-17 05:04] LABS: Calcium 8.8 mg/dL (8.6-10.3); Magnesium 1.9 mg/dL (1.9-2.7); Potassium 4.2 mmol/L (3.5-5.0)
[2023-02-17 05:10] LABS: Creatinine, Serum 0.94 mg/dL (0.51-0.95); eGFR CKD-EPI 66.1 (>60)
[2023-02-17] MEDS ORDERED: Magnesium Sulfate IV 1GM/100ML 1 GM/100 ML BAG IV ONE (08:24)
[2023-02-17] MEDS: Albuterol 2.5mg/3 ml (0.083%) NEB.SOLN INH SCH ×2 (08:36→19:24)
[2023-02-17] MEDS: Sodium Chloride(INHALANT) 7% 4 ML NEB.SOLN INH SCH ×2 (08:38→19:24)
[2023-02-17] MEDS: CMCS: Estradiol 1 mg TAB (NF) PO SCH (09:24)
[2023-02-17] MEDS ORDERED: Lactated Ringers 1000 ml BAG 500 ML IV ONE (09:37)
[2023-02-17] MEDS ORDERED: Metoprolol Tartrate 5 mg VIAL 5 ml VIAL (1 mg/ml) IV ONE ×2 (10:37→12:22)
[2023-02-17] MEDS ORDERED: D5W 1/2 NS 1000 ml BAG 1,000 ML IV SCH (17:00)
[2023-02-17] MEDS ORDERED: Enoxaparin 40 MG/0.4 ML SYR SUBCUT SCH (21:00)
[2023-02-17] MEDS ORDERED: Albuterol 2.5mg/3 ml (0.083%) NEB.SOLN INH PRN (21:22)
[2023-02-17] MEDS ORDERED: Sodium Chloride(INHALANT) 7% 4 ML NEB.SOLN INH PRN (21:23)
[2023-02-18 08:20] LABS: ABS Basophils 0.1 10^3/uL (0.0-0.1); ABS Eosinophils 0.1 10^3/uL (0.0-0.5); ABS Lymphocytes 2.4 10^3/uL (1.0-4.8); ABS Monocytes 0.5 10^3/uL (0.0-0.9); ABS Neutrophils 3.8 10^3/uL (1.5-7.6); Eosinophil % 1.1 %; Hematocrit 34.2 % (35-45); Hemoglobin 11.9 g/dL (11.5-14.3); Lymphocyte % 35.5 %; Mean Corpuscular Hemoglobin 34.5 pg (27-33); Mean Corpuscular Hgb Conc 34.9 g/dL (31-36); Mean Corpuscular Volume 98.7 fL (80-97); Mean Platelet Volume 7.1 fL (7.5-11.2); Nucleated Red Blood Cells % 0.1 /100 WBC (0.0-0.4); Platelet Count 276 10^3/uL (150-450); Red Blood Count 3.46 10^6/uL (3.63-4.92); Red Cell Distribution Width 12.9 % (12-17); White Blood Count 6.8 10^3/uL (3.8-11.8)
[2023-02-18 08:48] LABS: Calcium 8.8 mg/dL (8.6-10.3); Creatinine, Serum 0.97 mg/dL (0.51-0.95); Magnesium 2.1 mg/dL (1.9-2.7); Potassium 4.1 mmol/L (3.5-5.0); eGFR CKD-EPI 63.6 (>60)
[2023-02-18] MEDS: CMCS: Estradiol 1 mg TAB (NF) PO SCH (08:53)
[2023-02-18] MEDS ORDERED: Influenza vaccine *QUAD* *2023-24* 0.5 ML SYRINGE IM ONE (09:00)
[2023-02-18 14:10] VITALS: BP 114/67
== END 2023-02-18 14:50 | disposition home or self-care (01) ==
LOC: EDHOLD 19:34 → ED 19:34 → MEDTELE 02-17 00:09 → SUATTDRO 02-17 00:09 → MEDTELE 02-17 17:05
PROVIDERS: ADMIT Internal Medicine; ATTEND Hospitalist